=== PATIENT | female | born 1935 | race Caucasian/White ===

== ENCOUNTER → 2019-01-03 14:02 | Outpatient (CLI) | payer MEDICARE, SELFPAY ==
[2019-01-03 14:43] LABS: Add Manual Diff / Slide Review NO; Basophils Absolute Auto 0 /uL (0-100); Basophils Percent Auto 0.5 % (0-2); Eosinophils Absolute Auto 100 /uL (0-450); Hematocrit 41.5 % (36-46); Hemoglobin 13.7 g/dL (12.0-16.0); Lymphocytes Absolute Auto 2300 /uL (1100-4500); Lymphocytes Percent Auto 36.1 % (25-40); Mean Corpuscular HGB Conc 33.1 % (30-36); Mean Corpuscular Hemoglobin 29.7 PG (26-34); Mean Corpuscular Volume 89.7 fL (80-100); Monocytes Absolute Auto 400 /uL (0-900); Monocytes Percent Auto 5.7 % (3-14); Neutrophils Absolute Auto 3500 /uL (1500-7000); Neutrophils Percent Auto 55.7 % (50-75); Platelet Count 258 X10^3/uL (150-400); Red Blood Cell Count 4.63 X10^6/uL (4.0-5.2); Red Cell Distribution Width 13.5 % (11.6-14.8); White Blood Cell Count 6.3 X10^3/uL (4.5-11.0)
[2019-01-03 15:28] LABS: Erythrocyte Sedimentation Rate 13 MM/HR (0-20)
[2019-01-03 15:32] LABS: Alanine Aminotransferase 14 IU/L (9-52); Albumin 4.2 g/dL (3.5-5.0); Albumin Globulin Ratio 1.4 (1.0-2.8); Alkaline Phosphatase 72 U/L (38-126); Aspartate Aminotransferase 26 IU/L (14-36); BUN Creatinine Ratio 21.1 (6-22); Bilirubin Total 0.6 mg/dL (0.2-1.3); Blood Urea Nitrogen 19 mg/dL (7-17); Calcium 9.6 mg/dL (8.4-10.2); Carbon Dioxide 34 mmol/L (22-32); Chloride 100 mmol/L (98-107); Estimated Glomerular Filt Rate > 60.0 mL/min (>60); Glucose 119 mg/dL (80-110); HEMOLYSIS < 15 (0-50); Potassium 4.3 mmol/L (3.4-5.1); Sodium 141 mmol/L (137-145); Total Protein 7.2 g/dL (6.3-8.2)
[2019-01-03 16:19] LABS: C-Reactive Protein Quant < 0.5 mg/dL (<1.0)
== END ==
PROVIDERS: PCP Internal Medicine; Visit Provider Internal Medicine Rheumatology
DX: M35.3 Polymyalgia rheumatica (principal)
CPT/HCPCS: 36415; 80053; 85025; 85651; 86140

== ENCOUNTER → 2019-04-02 09:36 | Outpatient (CLI) | payer MEDICARE, SELFPAY | PROVIDERS: PCP Internal Medicine; Visit Provider Internal Medicine | DX: M85.852 Other specified disorders of bone density and structure, left thigh (principal); Z78.0 Asymptomatic menopausal state; Z82.62 Family history of osteoporosis | CPT/HCPCS: 77080 ==

== ENCOUNTER → 2020-01-23 07:12 | Outpatient (CLI) | payer MEDICARE, SELFPAY ==
[2020-01-23 08:22] LABS: Add Manual Diff / Slide Review NO; Basophils Absolute Auto 0 /uL (0-100); Basophils Percent Auto 0.5 % (0-2); Eosinophils Absolute Auto 300 /uL (0-450); Eosinophils Percent Auto 4.9 % (2-4); Hematocrit 41.2 % (36-46); Hemoglobin 13.9 g/dL (12.0-16.0); Lymphocytes Absolute Auto 2700 /uL (1100-4500); Mean Corpuscular HGB Conc 33.6 % (30-36); Mean Corpuscular Hemoglobin 30.2 PG (26-34); Mean Corpuscular Volume 89.8 fL (80-100); Monocytes Absolute Auto 400 /uL (0-900); Monocytes Percent Auto 6.9 % (3-14); Neutrophils Absolute Auto 2100 /uL (1500-7000); Neutrophils Percent Auto 37.7 % (50-75); Platelet Count 225 X10^3/uL (150-400); Red Blood Cell Count 4.59 X10^6/uL (4.0-5.2); Red Cell Distribution Width 13.7 % (11.6-14.8); White Blood Cell Count 5.5 X10^3/uL (4.5-11.0)
[2020-01-23 08:49] LABS: Alanine Aminotransferase 17 IU/L (<35); Albumin 4.3 g/dL (3.5-5.0); Albumin Globulin Ratio 1.5 (1.0-2.8); Alkaline Phosphatase 77 U/L (38-126); Aspartate Aminotransferase 30 IU/L (14-36); BUN Creatinine Ratio 19.3 (6-22); Bilirubin Total 0.6 mg/dL (0.2-1.3); Blood Urea Nitrogen 17 mg/dL (7-17); Calcium 9.5 mg/dL (8.4-10.2); Carbon Dioxide 30 mmol/L (22-32); Chloride 103 mmol/L (98-107); Cholesterol 194 mg/dL (140-199); Estimated Glomerular Filt Rate > 60.0 mL/min (>60); Globulin 2.8 g/dL (1.7-4.1); Glucose 86 mg/dL (80-110); HDL Cholesterol 69 mg/dL (40-60); HEMOLYSIS < 15 (0-50); LDL Cholesterol Calculated 106 mg/dL (<100); Potassium 4.3 mmol/L (3.4-5.1); Sodium 139 mmol/L (137-145); Total Protein 7.1 g/dL (6.3-8.2); Triglycerides 95 mg/dL (35-150)
[2020-01-23 08:51] LABS: C-Reactive Protein Quant < 0.5 mg/dL (<1.0)
[2020-01-23 08:54] LABS: Erythrocyte Sedimentation Rate 11 MM/HR (0-20)
== END ==
PROVIDERS: PCP Internal Medicine; Referring Provider Internal Medicine; Visit Provider Internal Medicine
DX: Z13.1 Encounter for screening for diabetes mellitus (principal); Z13.220 Encounter for screening for lipoid disorders; Z13.6 Encounter for screening for cardiovascular disorders; M35.3 Polymyalgia rheumatica; M85.80 Other specified disorders of bone density and structure, unspecified site
CPT/HCPCS: 36415; 80053; 80061; 85025; 85651; 86140

== ENCOUNTER → 2021-01-30 11:11 | Outpatient (CLI) | payer OTHER, SELFPAY ==
--- NOTE | 2021-01-30 11:12 | DI.RAD.S_ITS ---
PROCEDURE: XR DEXA AXIAL SKELETON INDICATIONS: osteopenia COMPARISON: None. FINDINGS: This blank DEXA report has been sent in error by the PACS system. The correct and complete report will be forthcoming in 1-2 days. Thank you for your patience and understanding. Dictated by: Christophe Marc M.D. on 01/30/2021 at 12:30 Approved by: Christophe Marc M.D. on 01/30/2021 at 12:31
== END ==
PROVIDERS: PCP Internal Medicine; Referring Provider Internal Medicine; Visit Provider Internal Medicine
DX: M85.89 Other specified disorders of bone density and structure, multiple sites (principal); M85.88 Other specified disorders of bone density and structure, other site; M85.852 Other specified disorders of bone density and structure, left thigh; M85.851 Other specified disorders of bone density and structure, right thigh; M81.0 Age-related osteoporosis without current pathological fracture
CPT/HCPCS: 77080

== ENCOUNTER 2022-05-05 10:35 | Emergency (ER) | payer OTHER, SELFPAY ==
[2022-05-05 10:40] VITALS: BP 173/82; PULSE 60; RESP 15; TEMP 36.6; O2SAT 96; BMI 22.4
--- NOTE | 2022-05-05 10:45 | DI.RAD.S_ITS ---
PROCEDURE: XR WRIST RT MIN 3V INDICATIONS: fall,wrist pain and tailbone pain TECHNIQUE: 4 views of the wrist were acquired. COMPARISON: [facility], , WRIST MINIMUM 3 VIEWS LEFT, 11/29/2006, 9:00. FINDINGS: Bones: Comminuted impacted distal radius fracture, possibly extending to the articular surface. No other fractures or dislocations. Degenerative arthritis at the base of the thumb. No suspicious bony lesions. Scaphoid view: Scaphoid intact Soft tissues: No suspicious soft tissue calcifications. IMPRESSION: Comminuted, impacted distal radius fracture, possibly extending to the articular surface. Dictated by: Pritesh Vega M.D. on 05/05/2022 at 11:31 Approved by: Pritesh Vega M.D. on 05/05/2022 at 11:32
--- NOTE | 2022-05-05 10:45 | DI.RAD.S_ITS ---
PROCEDURE: XR SACRUM COCCYX MIN 2V INDICATIONS: fall TECHNIQUE: 3 views of the sacrum and coccyx acquired. COMPARISON: None. FINDINGS: Bones: No fractures or dislocations. No suspicious bony lesions. Soft tissues: Visualized bowel gas pattern is normal. No suspicious soft tissue densities. IMPRESSION: No evidence acute bony abnormality of the sacrum and coccyx Dictated by: Pritesh Vega M.D. on 05/05/2022 at 11:32 Approved by: Pritesh Vega M.D. on 05/05/2022 at 11:32
--- NOTE | 2022-05-05 12:03 | ED_ITS ---
HPI - Fall <Jesus Padilla PA-C - Last Filed: 05/05/22 13:46> General Chief Complaint: Fall Stated Complaint: sent by [facility] fell injured RT wrist Time Seen by Provider: 05/05/22 11:53 Source: patient Mode of arrival: Ambulatory History of Present Illness HPI Narrative: This is a 86-year-old female presents to the emergency department due to right wrist pain as well as buttock pain after being pulled over by her dogs yesterday while going on a walk. States that her main complaints primarily the right wrist pain. Patient stated that she did hit her head but did not lose consciousness, not on blood thinners, no dizziness, nausea, vomiting, slurred speech, or any other concerning signs or symptoms. No numbness or tingling in the right hand. No other injuries. Related Data Home Medications Medication Instructions Recorded Confirmed cholecalciferol (vitamin D3) 50 1 tab PO QDAY ##0 05/26/16 05/05/22 mcg (2,000 unit) tablet (Vitamin D3) [BONE UP CA+] ##0 09/08/16 05/05/22 vitamin B complex 1 cap PO DAILY 01/18/20 05/05/22 turmeric root extract 500 mg 500 mg PO DAILY 06/24/20 05/05/22 capsule Allergies Allergy/AdvReac Type Severity Reaction Status Date / Time No Known Drug Allergies Allergy Verified 05/05/22 10:45 Review of Systems <Jesus Padilla PA-C - Last Filed: 05/05/22 13:46> Review of Systems Narrative: GENERAL: Denies chills, fatigue, malaise, fever, sweats. HEENT: Denies sinus pain, ear pain, sore throat, difficulty swallowing, dizziness. RESPIRATORY: Denies dyspnea, cough, wheezing, hemoptysis, sputum. CARDIOVASCULAR: Denies chest pain, palpitations, orthopnea, edema, GASTROINTESTINAL: Denies nausea, vomiting, abdominal pain, diarrhea, constipation, melena. : Denies dysuria, frequency, incontinence, hematuria, urinary retention. MUSCULOSKELETAL: Reports right wrist pain, buttock pain SKIN: Denies rash, skin lesions, or other NEUROLOGIC: Denies weakness, headache, numbness, change in speech, confusion, seizures, incoordination. PSYCHIATRIC: No concerning psychosocial issues. 12 point review of systems is negative except for those stated above Patient History <Jesus Padilla PA-C - Last Filed: 05/05/22 13:46> Medical History History of urinary incontinence Osteoarthrosis, unspecified whether generalized or localized, hand (09/16/10) Osteopenia (~2017) Pneumothorax (~2008) Polymyalgia rheumatica Surgical History Anesthesia Broken arm (~2018) History of bronchoscopy (~2009) History of cataract removal with insertion of prosthetic lens (~2008) History of removal of ovarian cyst (~1968) Family History Father History of heart disease Mother Cancer Sister Parkinson's disease Social History Smoking Status: Never smoker Smoking Status: Never smoker alcohol intake frequency: holidays/special occasions only Substance Use Type: does not use Exam <Jesus Padilla PA-C - Last Filed: 05/05/22 13:46> Narrative Exam Narrative: GENERAL: Well-developed patient, in mild distress. HEAD: Atraumatic. Normocephalic. EYES: Pupils equal round and reactive. Extraocular motions intact. No scleral icterus. No injection or drainage. ENT: Nose without bleeding, purulent drainage. Throat without erythema, tonsillar hypertrophy or exudate. Airway patent. NECK: Trachea midline. Non tender CARDIOVASCULAR: Regular rate and rhythm without murmurs, gallops, or rubs. RESPIRATORY: Clear to auscultation. Breath sounds equal bilaterally. No wheezes, rales, or rhonchi. GASTROINTESTINAL: Abdomen soft, non-tender, nondistended. EXTREMITIES: Right distal radius tenderness palpation. Neurovascularly intact throughout, 2+ radial pulse BACK: Nontender without deformity or crepitance. No flank tenderness. NEURO: AOx3. Cranial nerves 2-12 intact SKIN: No rash or erythema of visible areas Initial Vital Signs Initial Vital Signs: Vital Signs Temperature 97.9 F 05/05/22 10:40 Pulse Rate 60 05/05/22 10:40 Respiratory Rate 15 05/05/22 10:40 Blood Pressure 173/82 H 05/05/22 10:40 Pulse Oximetry 96 05/05/22 10:40 Oxygen Delivery Method 05/05/22 10:40 <DO Akua Levine Last Filed: 05/10/22 07:13> Initial Vital Signs Initial Vital Signs: Vital Signs Temperature 97.9 F 05/05/22 10:40 Pulse Rate 60 05/05/22 10:40 Respiratory Rate 15 05/05/22 10:40 Blood Pressure 173/82 H 05/05/22 10:40 Pulse Oximetry 96 05/05/22 10:40 Oxygen Delivery Method 05/05/22 10:40 Course <Jesus Padilla PA-C - Last Filed: 05/05/22 13:46> Orders Ordered: ED Orders 05/05/22 10:45 XR sacrum coccyx min 2V Stat XR wrist RT min 3V Stat Vital Signs Vital signs: Vital Signs - 8 hr 05/05/22 10:40 Temperature 97.9 F Pulse Rate 60 Respiratory Rate 15 Blood Pressure 173/82 H Pulse Oximetry 96 Oxygen Delivery Method Room Air <DO Akua Levine Last Filed: 05/10/22 07:13> Orders Ordered: ED Orders 05/05/22 10:45 XR sacrum coccyx min 2V Stat XR wrist RT min 3V Stat Vital Signs Vital signs: Vital Signs - 8 hr 05/05/22 10:40 Temperature 97.9 F Pulse Rate 60 Respiratory Rate 15 Blood Pressure 173/82 H Pulse Oximetry 96 Oxygen Delivery Method Room Air MDM - Fall <Jesus Padilla PA-C - Last Filed: 05/05/22 13:46> Imaging Data Extremity x-ray #1: Radiologist's Impression: [address] [address] XRay Report Signed Patient: Lamar Alvarado MR#: [id number] : 1935 Acct:[id number] Age/Sex: 86 / F Date of Service: 05/05/22 Loc: ED Accession Number: [id number] ?? Procedure: XR wrist RT min 3V Ordering Provider: Iwona Rouse D.O. PROCEDURE:? XR WRIST RT MIN 3V ? INDICATIONS: fall,wrist pain and tailbone pain ? TECHNIQUE:? 4 views of the wrist were acquired.? ? COMPARISON:? [facility], , WRIST MINIMUM 3 VIEWS LEFT, 11/29/2006, 9:00. ? FINDINGS:? ? Bones:? Comminuted impacted distal radius fracture, possibly extending to the articular surface.? No other fractures or dislocations.? Degenerative arthritis at the base of the thumb.? No suspicious bony lesions.? ? Scaphoid view:? Scaphoid intact ? Soft tissues:? No suspicious soft tissue calcifications.? ? IMPRESSION:? Comminuted, impacted distal radius fracture, possibly extending to the articular surface. ? ? Dictated by: Pritesh Vega M.D. on 05/05/2022 at 11:31 ? ? Approved by: Pritesh Vega M.D. on 05/05/2022 at 11:32 ? Extremity x-ray #2: Radiologist's Impression: [place] [address] XRay Report Signed Patient: Lamar Alvarado MR#: [id number] : 1935 Acct:[id number] Age/Sex: 86 / F Date of Service: 05/05/22 Loc: ED Accession Number: [id number] ?? Procedure: XR sacrum coccyx min 2V Ordering Provider: Iwona Rouse D.O. PROCEDURE:? XR SACRUM COCCYX MIN 2V ? INDICATIONS:? fall ? TECHNIQUE:? 3 views of the sacrum and coccyx acquired.? ? COMPARISON:? None. ? FINDINGS:? ? Bones:? No fractures or dislocations.? No suspicious bony lesions.? ? Soft tissues:? Visualized bowel gas pattern is normal.? No suspicious soft tissue densities.? ? IMPRESSION:? No evidence acute bony abnormality of the sacrum and coccyx ? ? Dictated by: Pritesh Vega M.D. on 05/05/2022 at 11:32 ? ? Approved by: Pritesh Vega M.D. on 05/05/2022 at 11:32 ? MDM Narrative Medical decision making narrative: This is an 86-year-old female presents emergency department with a right distal radius fracture with possible extension to the articular surface. Patient was neurovascularly intact throughout. On x-ray there did not appear to be enough displacement to justify any kind of reduction. Patient will be placed in a sugar-tong splint and instructed to follow up with orthopedics outpatient. On re-evaluation post splint placement patient was neurovascularly intact throughout. Discharge Plan Departure Patient Disposition: Home Clinical Impression: Distal radius fracture Activity Restrictions/Additional Instructions: Thank you for coming to the [facility] Emergency Department today. On x-ray appears that you have a distal radius fracture. Please keep your arm in the splint given to you until you are able to follow-up with orthopedics outpatient. Information attached. Please to arrange an appointment please use Tylenol and ibuprofen as needed for the pain. I hope you feel better soon. Prescriptions: No Action cholecalciferol (vitamin D3) [Vitamin D3] 2,000 UNIT tablet 1 tab PO QDAY Qty: 0 [BONE UP CA+] Qty: 0 vitamin B complex Capsule 1 cap PO DAILY turmeric root extract 500 mg capsule 500 mg PO DAILY Referrals: Saida Cavanaugh MD [Physician] - (f/u distal radius fracture ) Valentin Little MD [Primary Care Provider] - Visit Report Forms: Patient Portal/API <Iwona Rouse DO - Last Filed: 05/10/22 07:13> Cosign ED Attending Cosrhondaature Attestation: I was immediately available in the department for consultation. Documentation has been reviewed. I agree with assessment and plan.
[2022-05-05 14:16] VITALS: BP 137/77; PULSE 69; RESP 15; TEMP 36.9; O2SAT 96
== END 2022-05-05 14:17 | disposition home or self-care (01) ==
PROVIDERS: Emergency Provider Physician Assistant Medical; PCP Internal Medicine
DX: S52.501A Unspecified fracture of the lower end of right radius, initial encounter for closed fracture (principal); M54.50 Low back pain, unspecified; W18.30XA Fall on same level, unspecified, initial encounter; Y93.K1 Activity, walking an animal
CPT/HCPCS: 72220; 73110; 99281; 99283

== ENCOUNTER → 2022-11-18 09:38 | Outpatient (CLI) | payer OTHER, SELFPAY ==
[2022-11-18 10:13] LABS: Add Manual Diff / Slide Review NO; Basophils Absolute Auto 0 /uL (0-100); Basophils Percent Auto 0.4 % (0-2); Eosinophils Absolute Auto 200 /uL (0-450); Hematocrit 40.2 % (36-46); Hemoglobin 13.6 g/dL (12.0-16.0); Lymphocytes Absolute Auto 1900 /uL (1100-4500); Lymphocytes Percent Auto 35.5 % (25-40); Mean Corpuscular HGB Conc 33.8 % (30-36); Mean Corpuscular Volume 88.7 fL (80-100); Monocytes Absolute Auto 400 /uL (0-900); Monocytes Percent Auto 6.8 % (3-14); Neutrophils Absolute Auto 2900 /uL (1500-7000); Neutrophils Percent Auto 54.3 % (50-75); Platelet Count 219 X10^3/uL (150-400); Red Blood Cell Count 4.53 X10^6/uL (4.0-5.2); Red Cell Distribution Width 13.8 % (11.6-14.8); White Blood Cell Count 5.4 X10^3/uL (4.5-11.0)
[2022-11-18 10:31] LABS: Erythrocyte Sedimentation Rate 15 MM/HR (0-20)
[2022-11-18 10:40] LABS: Alanine Aminotransferase 21 IU/L (<35); Albumin 4.1 g/dL (3.5-5.0); Albumin Globulin Ratio 1.4 (1.0-2.8); Alkaline Phosphatase 78 U/L (38-126); Aspartate Aminotransferase 27 IU/L (14-36); BUN Creatinine Ratio 19.5 (6-22); Bilirubin Total 0.5 mg/dL (0.2-1.3); Blood Urea Nitrogen 16 mg/dL (7-17); C-Reactive Protein Quant < 0.5 mg/dL (<1.0); Calcium 9.1 mg/dL (8.4-10.2); Carbon Dioxide 29 mmol/L (22-32); Chloride 103 mmol/L (98-107); Estimated Glomerular Filt Rate > 60 mL/min (>60); Globulin 2.9 g/dL (1.7-4.1); Glucose 98 mg/dL (80-110); HEMOLYSIS < 15 (0-50); Potassium 4.2 mmol/L (3.4-5.1); Sodium 139 mmol/L (137-145)
== END ==
PROVIDERS: PCP Internal Medicine; Referring Provider Internal Medicine; Visit Provider Internal Medicine
DX: M35.3 Polymyalgia rheumatica (principal); M19.041 Primary osteoarthritis, right hand; M19.042 Primary osteoarthritis, left hand; M85.89 Other specified disorders of bone density and structure, multiple sites
CPT/HCPCS: 36415; 80053; 85025; 85651; 86140

== ENCOUNTER 2023-01-25 14:26 | Emergency (ER) | payer OTHER, SELFPAY ==
[2023-01-25] VITALS (8 sets, daily range): BP systolic 156–176; BP diastolic 72–96; PULSE 54–57; RESP 12–27; TEMP 36.6; O2SAT 92–98; BMI 23.1
--- NOTE | 2023-01-25 14:33 | DI.RAD.S_ITS ---
PROCEDURE: XR CHEST 1V INDICATIONS: chest pain TECHNIQUE: One view of the chest was acquired. COMPARISON: [facility], , XR CHEST 2VW, 11/17/2016, 9:15. FINDINGS: Surgical changes and devices: Partially visualized right humerus fixation hardware. Lungs and pleura: Lungs are clear. Bilateral a pickle pleural-parenchymal scarring, right greater than left. No pleural effusions or pneumothorax. Mediastinum: Mediastinal contours appear normal. Heart size is normal. Bones and chest wall: No suspicious bony lesions. Overlying soft tissues appear unremarkable. IMPRESSION: Portable chest within normal limits for age. Dictated by: Kya Vargas MD, PhD on 01/25/2023 at 15:00 Approved by: Kya Vargas MD, PhD on 01/25/2023 at 15:01
[2023-01-25 15:21] LABS: Add Manual Diff / Slide Review NO; Basophils Absolute Auto 0 /uL (0-100); Basophils Percent Auto 0.4 % (0-2); Eosinophils Absolute Auto 200 /uL (0-450); Eosinophils Percent Auto 2.4 % (2-4); Hematocrit 39.3 % (36-46); Hemoglobin 13.5 g/dL (12.0-16.0); Lymphocytes Absolute Auto 2300 /uL (1100-4500); Lymphocytes Percent Auto 35.4 % (25-40); Mean Corpuscular HGB Conc 34.4 % (30-36); Mean Corpuscular Hemoglobin 29.8 PG (26-34); Mean Corpuscular Volume 86.8 fL (80-100); Monocytes Absolute Auto 400 /uL (0-900); Monocytes Percent Auto 6.7 % (3-14); Neutrophils Absolute Auto 3600 /uL (1500-7000); Neutrophils Percent Auto 55.1 % (50-75); Platelet Count 274 X10^3/uL (150-400); Red Blood Cell Count 4.53 X10^6/uL (4.0-5.2); Red Cell Distribution Width 13.1 % (11.6-14.8); White Blood Cell Count 6.5 X10^3/uL (4.5-11.0)
[2023-01-25 15:28] LABS: Prothrombin Time 11.4 SECONDS (10.1-12.7)
[2023-01-25 15:31] LABS: PTT Partial Thromboplastin Tim 30 SECONDS (26-36)
[2023-01-25 15:37] LABS: Alanine Aminotransferase 33 IU/L (<35); Albumin 4.2 g/dL (3.5-5.0); Albumin Globulin Ratio 1.2 (1.0-2.8); Alkaline Phosphatase 99 U/L (38-126); Aspartate Aminotransferase 36 IU/L (14-36); BUN Creatinine Ratio 19.3 (6-22); Bilirubin Total 0.6 mg/dL (0.2-1.3); Blood Urea Nitrogen 16 mg/dL (7-17); Carbon Dioxide 32 mmol/L (22-32); Chloride 101 mmol/L (98-107); Creatine Kinase 72 U/L (30-135); Estimated Glomerular Filt Rate > 60 mL/min (>60); Globulin 3.5 g/dL (1.7-4.1); Glucose 111 mg/dL (80-110); HEMOLYSIS < 15 (0-50); Lipase 163 U/L (23-300); Magnesium 2.3 mg/dL (1.6-2.3); Potassium 4.2 mmol/L (3.4-5.1); Sodium 140 mmol/L (137-145); Total Protein 7.7 g/dL (6.3-8.2)
[2023-01-25 15:48] LABS: Troponin I < 0.012 ng/mL (0.01-0.034)
[2023-01-25] MEDS: ASPIRIN 81 MG CHEW TAB 324 MG PO (16:27)
--- NOTE | 2023-01-25 16:34 | ED.CHESTPAIN ---
HPI - Chest Pain General Chief Complaint: Chest Pain Stated Complaint: sent by [facility] heart eval Time Seen by Provider: 01/25/23 15:04 Source: patient Mode of arrival: Ambulatory Limitations: no limitations History of Present Illness HPI narrative: Patient 87-year-old female history of osteoarthritis osteopenia pneumothorax presenting today with chest tightness. She reports that she is had chest tightness ongoing for about 2 weeks. He reports that she has a deep nonproductive cough. She denies any shortness of breath with exertion. Chest pain is nonradiating it has been constant for 2 weeks not reproducible with palpation. She has no lower extremity swelling. No known history of coronary artery disease. She is reports that she took an COVID test at home it was negative. She woke up this morning sweaty with thought that was because she was sleeping with her dog. She is not had chills. She was seen at walk-in clinic today with concerns sent her here for further cardiac evaluation. She also reports that her recently and she has a lot of stress around that. Related Data Home Medications Medication Instructions Recorded Confirmed cholecalciferol (vitamin D3) 50 1 tab PO QDAY ##0 05/26/16 01/25/23 mcg (2,000 unit) tablet (Vitamin D3) [BONE UP CA+] ##0 09/08/16 01/25/23 vitamin B complex 1 cap PO DAILY 01/18/20 01/25/23 Previous Rx's Medication Instructions Recorded prednisone 10 mg tablet 10 mg PO DAILY #30 tabs 11/22/22 Allergies Allergy/AdvReac Type Severity Reaction Status Date / Time No Known Drug Allergies Allergy Verified 01/25/23 14:32 Review of Systems Review of Systems ROS Unobtainable: All systems reviewed & are unremarkable except as noted in HPI and below Patient History Medical History History of urinary incontinence Osteoarthrosis, unspecified whether generalized or localized, hand (09/16/10) Osteopenia (~2017) Pneumothorax (~2008) Polymyalgia rheumatica Wrist fracture, right Surgical History Anesthesia Broken arm (~2018) History of bronchoscopy (~2009) History of cataract removal with insertion of prosthetic lens (~2008) History of removal of ovarian cyst (~1969) Family History Father History of heart disease Mother Cancer Sister Parkinson's disease Social History Smoking Status: Never smoker Smoking Status: Never smoker alcohol intake frequency: holidays/special occasions only Substance Use Type: does not use Exam Initial Vital Signs Initial Vital Signs: Vital Signs Temperature 97.9 F 01/25/23 14:28 Pulse Rate 57 L 01/25/23 14:28 Respiratory Rate 16 01/25/23 14:28 Blood Pressure 172/76 H 01/25/23 14:28 Pulse Oximetry 95 01/25/23 14:28 Oxygen Delivery Method Room Air 01/25/23 14:28 GENERAL: Alert pleasant 87-year-old female and in no acute distress. HEENT: Head atraumatic,EOMI, pupils reactive, face symmetric, moist mucous membranes CARDIOVASCULAR: Regular rate and rhythm without murmurs, rubs or gallops. RESPIRATORY: Breath sounds equal bilaterally, no wheezes rales or rhonchi. ABDOMEN: Soft, nontender. Normoactive bowel sounds all 4 quadrants. No guarding or rebound. EXTREMITIES: Normal range of motion, no clubbing or edema. Neurovascularly intact NEUROLOGICAL: Alert and oriented x4 SKIN: Warm, dry, no laceration, no petechiae, no rashes or lesions. Scores HEART Score Heart Score history: Slightly Suspicious Heart Score EKG: Normal Heart Score Age: > or = 65 years old Heart Score risk factors: No known risk factors Heart Score troponin: < or = to normal limit Heart Score Total: 2 Course Orders Ordered: ED Orders 01/25/23 14:33 XR chest 1V Stat EKG-12 Lead Stat 01/25/23 15:15 Complete Blood Count AUTO DIFF Stat Comprehensive Metabolic Panel Stat Lipase Stat Magnesium Stat PTT Partial Thromboplastin Migel Stat Prothrombin Time INR Stat Troponin & CK Cardiac Panel Stat 01/25/23 17:15 EKG-12 Lead Stat 01/25/23 17:26 Troponin I Stat Discontinued Medications Aspirin (Aspirin 81 Mg Chew Tab) 324 mg PO NOW ONE Stop: 01/25/23 14:34 Last Admin: 01/25/23 16:27 Dose: 324 mg Documented By: MICHAEL Vital Signs Vital signs: Vital Signs - 8 hr 01/25/23 14:28 01/25/23 15:37 01/25/23 15:38 Temperature 97.9 F Pulse Rate 57 L 55 L 54 L Respiratory Rate 16 20 12 Blood Pressure 172/76 H Pulse Oximetry 95 97 96 Oxygen Delivery Method Room Air 01/25/23 15:38 01/25/23 16:00 01/25/23 16:00 Temperature Pulse Rate 55 L Respiratory Rate 24 Blood Pressure 164/96 H 161/77 H Pulse Oximetry 97 Oxygen Delivery Method Room Air 01/25/23 16:30 01/25/23 16:30 01/25/23 17:00 Temperature Pulse Rate 56 L Respiratory Rate 24 Blood Pressure 176/83 H 156/74 H Pulse Oximetry 98 Oxygen Delivery Method 01/25/23 17:00 01/25/23 18:12 01/25/23 18:14 Temperature Pulse Rate 54 L Respiratory Rate 27 H Blood Pressure 161/72 H Pulse Oximetry 97 92 Oxygen Delivery Method 01/25/23 18:14 Temperature Pulse Rate 54 L Respiratory Rate 13 Blood Pressure Pulse Oximetry 97 Oxygen Delivery Method Room Air MDM - Chest Pain Lab Data 01/25/23 15:15 01/25/23 15:15 Labs: Lab Results 01/25/23 01/25/23 01/25/23 Range/Units 15:15 15:15 15:15 WBC 6.5 (4.5-11.0) X10^3/uL RBC 4.53 (4.0-5.2) X10^6/uL Hgb 13.5 (12.0-16.0) g/dL Hct 39.3 (36-46) % MCV 86.8 (80-100) fL MCH 29.8 (26-34) PG MCHC 34.4 (30-36) % RDW 13.1 (11.6-14.8) % Plt Count 274 (150-400) X10^3/uL Neut % (Auto) 55.1 (50-75) % Lymph % (Auto) 35.4 (25-40) % [place] % (Auto) 6.7 (3-14) % Eos % (Auto) 2.4 (2-4) % Baso % (Auto) 0.4 (0-2) % Neut # (Auto) 3600 (2031-7539) /uL Lymph # (Auto) 2300 (1450-6526) /uL [place] # (Auto) 400 (0-900) /uL Eos # (Auto) 200 (0-450) /uL Baso # (Auto) 0 (0-100) /uL PT 11.4 (10.1-12.7) SECONDS INR 1.0 (0.9-1.3) APTT 30 (26-36) SECONDS Sodium 140 (137-145) mmol/L Potassium 4.2 (3.4-5.1) mmol/L Chloride 101 (98-107) mmol/L Carbon Dioxide 32 (22-32) mmol/L BUN 16 (7-17) mg/dL Creatinine 0.83 (0.52-1.04) mg/dL Estimated GFR > 60 (>60) mL/min BUN/Creatinine Ratio 19.3 (6-22) Glucose 111 H (80-110) mg/dL Calcium 9.0 (8.4-10.2) mg/dL Magnesium 2.3 (1.6-2.3) mg/dL Total Bilirubin 0.6 (0.2-1.3) mg/dL AST 36 (14-36) IU/L ALT 33 (<35) IU/L Alkaline Phosphatase 99 (38-126) U/L Total Creatine Kinase 72 (30-135) U/L Troponin I < 0.012 (0.01-0.034) ng/mL Total Protein 7.7 (6.3-8.2) g/dL Albumin 4.2 (3.5-5.0) g/dL Globulin 3.5 (1.7-4.1) g/dL Albumin/Globulin Ratio 1.2 (1.0-2.8) Lipase 163 (23-300) U/L 01/25/23 Range/Units 17:26 WBC (4.5-11.0) X10^3/uL RBC (4.0-5.2) X10^6/uL Hgb (12.0-16.0) g/dL Hct (36-46) % MCV (80-100) fL MCH (26-34) PG MCHC (30-36) % RDW (11.6-14.8) % Plt Count (150-400) X10^3/uL Neut % (Auto) (50-75) % Lymph % (Auto) (25-40) % [place] % (Auto) (3-14) % Eos % (Auto) (2-4) % Baso % (Auto) (0-2) % Neut # (Auto) (7930-5312) /uL Lymph # (Auto) (3042-6808) /uL [place] # (Auto) (0-900) /uL Eos # (Auto) (0-450) /uL Baso # (Auto) (0-100) /uL PT (10.1-12.7) SECONDS INR (0.9-1.3) APTT (26-36) SECONDS Sodium (137-145) mmol/L Potassium (3.4-5.1) mmol/L Chloride (98-107) mmol/L Carbon Dioxide (22-32) mmol/L BUN (7-17) mg/dL Creatinine (0.52-1.04) mg/dL Estimated GFR (>60) mL/min BUN/Creatinine Ratio (6-22) Glucose (80-110) mg/dL Calcium (8.4-10.2) mg/dL Magnesium (1.6-2.3) mg/dL Total Bilirubin (0.2-1.3) mg/dL AST (14-36) IU/L ALT (<35) IU/L Alkaline Phosphatase (38-126) U/L Total Creatine Kinase (30-135) U/L Troponin I < 0.012 (0.01-0.034) ng/mL Total Protein (6.3-8.2) g/dL Albumin (3.5-5.0) g/dL Globulin (1.7-4.1) g/dL Albumin/Globulin Ratio (1.0-2.8) Lipase (23-300) U/L Imaging Data Chest x-ray: Radiologist's Impression: PROCEDURE:? XR CHEST 1V ? INDICATIONS:? chest pain ? TECHNIQUE:? One view of the chest was acquired.? ? COMPARISON:? [facility], CR, XR CHEST 2VW, 11/17/2016, 9:15. ? FINDINGS:? ? Surgical changes and devices:? Partially visualized right humerus fixation hardware. ? Lungs and pleura:? Lungs are clear.? Bilateral a pickle pleural-parenchymal scarring, right greater than left.? No pleural effusions or pneumothorax.? ? Mediastinum:? Mediastinal contours appear normal.? Heart size is normal.? ? Bones and chest wall:? No suspicious bony lesions.? Overlying soft tissues appear unremarkable.? ? ? IMPRESSION:? Portable chest within normal limits for age. ? ? Dictated by: Kya Vargas MD, PhD on 01/25/2023 at 15:00 ? ? ECG Data Interpretation: Normal sinus rhythm rate 56 VA interval 176 QRS 104 QTC 403 T changes no T-wave inversions no priors to compare EKG 2. Sinus rhythm rate [address] changes similar to previous MDM Narrative Medical decision making narrative: Patient 87-year-old female presents today with cough and chest discomfort ongoing for 2 weeks. It is constant nonradiating feeling it at rest. Does not seem to be significantly worse with exertion. Chest x-ray is clear no need for antibiotics. She is afebrile without leukocytosis or sign of infection. She is 2- troponins no changes in her EKGs. She has no known coronary artery disease or risk factors. She is taken a home COVID test which is negative at time Labs have been reviewed Chest x-ray has been reviewed Patient is in no respiratory distress having deep cough with chest tightness consistent with a viral-like illness. She is not hypoxic hemodynamically stable. Symptoms not consistent with pulmonary embolism although it was considered. No evidence of ACS at this time Discharge Plan Departure Patient Disposition: Home Clinical Impression: Atypical chest pain, Acute upper respiratory infection Instructions: DI for Viral Upper Respiratory Infection -- Adult, DI for Atypical Chest Pain Activity Restrictions/Additional Instructions: *You have been diagnosed with atypical chest pain, possible viral syndrome *What to do: At this time no need for antibiotics. You may require further cardiac evaluation such as a stress test. Please discuss this with your primary care provider *Continue to take medications as directed *Follow up with your primary care provider in 2-3 days or call [phone] *Return to ER if you should have increasing chest pain shortness of breath fever confusion or any new, worsening or concerning symptoms Prescriptions: No Action cholecalciferol (vitamin D3) [Vitamin D3] 2,000 UNIT tablet 1 tab PO QDAY Qty: 0 [BONE UP CA+] Qty: 0 prednisone 10 mg tablet 10 mg PO DAILY Qty: 30 3RF vitamin B complex Capsule 1 cap PO DAILY Referrals: Valentin Little MD [Primary Care Provider] - Stand Alone Forms: Patient Portal/API
[2023-01-25 18:05] LABS: Troponin I < 0.012 ng/mL (0.01-0.034)
== END 2023-01-25 19:05 | disposition home or self-care (01) ==
PROVIDERS: Emergency Provider Emergency Medicine; PCP Internal Medicine
DX: J06.9 Acute upper respiratory infection, unspecified (principal); R07.89 Other chest pain
CPT/HCPCS: 36415; 71045; 80053; 82550; 83690; 83735; 84484; 85025; 85610; 85730; 93005; 93010; 99284

== ENCOUNTER → 2023-07-05 07:22 | Outpatient (CLI) | payer OTHER, SELFPAY ==
[2023-07-05 08:30] LABS: Alanine Aminotransferase 18 IU/L (<35); Albumin 3.9 g/dL (3.5-5.0); Albumin Globulin Ratio 1.3 (1.0-2.8); Alkaline Phosphatase 80 U/L (38-126); Aspartate Aminotransferase 29 IU/L (14-36); BUN Creatinine Ratio 23.5 (6-22); Bilirubin Total 0.7 mg/dL (0.2-1.3); Blood Urea Nitrogen 20 mg/dL (7-17); Calcium 9.5 mg/dL (8.4-10.2); Carbon Dioxide 30 mmol/L (22-32); Chloride 102 mmol/L (98-107); Cholesterol 165 mg/dL (140-199); Estimated Glomerular Filt Rate > 60 mL/min (>60); Globulin 2.9 g/dL (1.7-4.1); Glucose 83 mg/dL (80-110); HDL Cholesterol 65 mg/dL (40-60); HEMOLYSIS < 15 (0-50); LDL Cholesterol Calculated 86 mg/dL (<100); Potassium 4.1 mmol/L (3.4-5.1); Sodium 139 mmol/L (137-145); Total Protein 6.8 g/dL (6.3-8.2); Triglycerides 70 mg/dL (35-150)
== END ==
PROVIDERS: PCP Internal Medicine; Referring Provider Internal Medicine; Visit Provider Internal Medicine
DX: Z13.6 Encounter for screening for cardiovascular disorders (principal); M85.80 Other specified disorders of bone density and structure, unspecified site; Z13.1 Encounter for screening for diabetes mellitus; Z13.220 Encounter for screening for lipoid disorders
CPT/HCPCS: 36415; 80053; 80061

== ENCOUNTER → 2023-07-07 14:30 | Outpatient (CLI) | payer OTHER, SELFPAY ==
--- NOTE | 2023-07-07 14:32 | DI.RAD.S_ITS ---
Bone Density Report Name: SANDEEP TRIPLETT Age: 87 Sex: Female Ethnicity: White Date of : 1935 Indication: osteopenia; Referring Provider: SAURAV GUZMÁN Study: Bone densitometry was performed. Exam Date: July 07, 2023 Accession number: [id number] Bone Density: Region BMD T-score Z-score Classification AP Spine(L1-L4) 0.877 -1.5 1.3 Osteopenia Femoral Neck (Left) 0.614 -2.1 0.4 Osteopenia Total Hip (Left) 0.733 -1.7 0.6 Osteopenia Femoral Neck (Right) 0.551 -2.7 -0.2 Osteoporosis Total Hip (Right) 0.755 -1.5 0.8 Osteopenia Total Hip Mean 0.744 -1.6 0.7 Osteopenia World Health Organization criteria for BMD impression classify patients as: Normal (T-score at or above -1.0), Osteopenia (T-score between -1.0 and -2.5), or Osteoporosis (T-score at or below -2.5). 10-year Fracture Risk: FRAX not reported because: Some T-score for Spine Total or Hip Total or Femoral Neck at or below -2.5 Previous Exams: -- Region Exam Age BMD T-score BMD Change BMD Change Date g/cm2 vs Baseline vs Previous -- AP Spine (L1-L4) 07/07/2023 87 0.877 -1.5 -0.100 (-10.2%)# -0.009 (-1.0%)# 01/30/2021 85 0.886 -1.5 -0.091 (-9.3%)* 0.010 (1.1%) 04/02/2019 83 0.876 -1.6 -0.100 (-10.3%)* -0.021 (-2.3%) 08/08/2015 79 0.897 -1.4 -0.079 (-8.1%)* -0.079 (-8.1%)* 02/15/2007 71 0.976 -0.6 Total Hip(Left) 07/07/2023 87 0.733 -1.7 -0.092 (-11.1%)# 0.001 (0.1%)# 01/30/2021 85 0.732 -1.7 -0.092 (-11.2%)* 0.010 (1.4%) 04/02/2019 83 0.722 -1.8 -0.102 (-12.4%)* -0.018 (-2.4%) 08/08/2015 79 0.740 -1.7 -0.084 (-10.2%)* -0.084 (-10.2%)* 02/15/2007 71 0.825 -1.0 Total Hip(Right) 07/07/2023 87 0.755 -1.5 -0.095 (-11.2%)# 0.014 (1.9%)# 01/30/2021 85 0.741 -1.6 -0.109 (-12.9%)* -0.027 (-3.6%)* 04/02/2019 83 0.768 -1.4 -0.082 (-9.7%)* -0.029 (-3.6%)* 08/08/2015 79 0.797 -1.2 -0.053 (-6.2%)* -0.053 (-6.2%)* 02/15/2007 71 0.851 -0.7 -- *Denotes significance at 95% confidence level, LSC for AP Spine = 0.022 g/cm2, LSC for Total Hip = 0.027 g/cm2 # Denotes dissimilar scan types or analysis methods Impression: The patient has osteoporosis, based on the Right Femoral Neck T-score. No significant bone loss was observed. Discussion: INCREASED RISK OF FRACTURE. BONE DENSITY IS UNDESIRABLY LOW AT ONE OR MORE SKELETAL SITES, CONSISTENT WITH POSTMENOPAUSAL OSTEOPOROSIS. This patient's lowest T-score meets the World Health Organization's (WHO) criteria for osteoporosis at one or more sites (T-score -2.5 or below). In untreated patients, the risk of osteoporotic fracture increases approximately two-fold for each 1.0 SD decrease in T-score. Low bone density is not the only risk factor for fracture; also consider factors such as patient's age, frailty or poor health, risk of falling, risk of injury, previous osteoporotic fracture, family history of osteoporosis, cigarette smoking, low body weight, etc. Not everyone with low bone mineral density has osteoporosis; osteomalacia and other metabolic bone disorders should also be considered. Patients who have osteoporosis should be evaluated for specific diseases and conditions (secondary causes) that may cause or contribute to bone loss. The [place] [employer]ocrinologists (AACE) and National Osteoporosis Foundation (NOF) recommend pharmacologic intervention for all postmenopausal women whose T-score is in this range. The patient should follow a healthful lifestyle (good nutrition with adequate calcium and vitamin D, and appropriate weight-bearing exercise). Follow-Up: Consider a repeat BMD and Vertebral Fracture Assessment (VFA) exam in 2 years or sooner if medically necessary, to reassess this patient's status. Reported by: SHIRLEY MARTINEZ M.D. on 07/07/2023 2:56:00 PM.
== END ==
LOC: RAD 14:31
PROVIDERS: PCP Internal Medicine; Referring Provider Internal Medicine; Visit Provider Internal Medicine
DX: M81.0 Age-related osteoporosis without current pathological fracture (principal)
CPT/HCPCS: 77080

== ENCOUNTER 2024-04-29 13:08 | Emergency (ER) | payer OTHER, SELFPAY ==
[2024-04-29] VITALS (8 sets, daily range): BP systolic 138–193; BP diastolic 63–80; PULSE 52–63; RESP 15–24; TEMP 36.4–36.6; O2SAT 97–99; BMI 23.3
--- NOTE | 2024-04-29 13:18 | DI.RAD.S_ITS ---
PROCEDURE: XR CHEST 1V INDICATIONS: chest pressure TECHNIQUE: One view of the chest was acquired. COMPARISON: [facility], CR, XR CHEST 1V, 01/25/2023, 14:37. FINDINGS: Surgical changes and devices: Right humeral fixation hardware. Lungs and pleura: Lungs are clear. No pleural effusions or pneumothorax. Right apical scarring is unchanged. Mediastinum: Mediastinal contours appear normal. Heart size is normal. Bones and chest wall: No suspicious bony lesions. Overlying soft tissues appear unremarkable. IMPRESSION: No acute cardiopulmonary abnormality is seen. Dictated by: Noelle Calloway M.D. on 04/29/2024 at 13:26 Approved by: Noelle Calloway M.D. on 04/29/2024 at 13:27
--- NOTE | 2024-04-29 13:18 | EKG_ITS ---
[address] [address] Test Date: 2024-04-29 Pat Name: Lamar Alvarado Department: Room: Gender: Female Hog Scalder: MATHIEU : 1935 Requested By: Order Number: [id number] Reading MD: Donald Mata Measurements Intervals [place] Rate: 63 P: 62 DE: 162 QRS: -47 QRSD: 110 T: 62 QT: 412 QTc: 421 Interpretive Statements Normal sinus rhythm Incomplete right bundle branch block Left anterior fascicular block Moderate voltage criteria for LVH, may be normal variant ( R in aVL , J Carlos product ) Nonspecific ST abnormality Electronically Signed On 05-01-2024 19:41:34 PST by Donald Mata
[2024-04-29 13:35] LABS: Add Manual Diff / Slide Review NO; Basophils Absolute Auto 100 /uL (0-100); Basophils Percent Auto 0.7 % (0-2); Eosinophils Absolute Auto 100 /uL (0-450); Hematocrit 44.6 % (36-46); Hemoglobin 14.6 g/dL (12.0-16.0); Lymphocytes Absolute Auto 2500 /uL (1100-4500); Lymphocytes Percent Auto 28.7 % (25-40); Mean Corpuscular HGB Conc 32.8 % (30-36); Mean Corpuscular Hemoglobin 29.7 PG (26-34); Mean Corpuscular Volume 90.3 fL (80-100); Monocytes Absolute Auto 500 /uL (0-900); Monocytes Percent Auto 6.1 % (3-14); Neutrophils Absolute Auto 5400 /uL (1500-7000); Neutrophils Percent Auto 63.5 % (50-75); Platelet Count 287 X10^3/uL (150-400); Red Blood Cell Count 4.94 X10^6/uL (4.0-5.2); Red Cell Distribution Width 14.2 % (11.6-14.8); White Blood Cell Count 8.6 X10^3/uL (4.5-11.0)
[2024-04-29 13:44] LABS: INR 0.9 (0.9-1.3); Prothrombin Time 10.7 SECONDS (9.4-12.5)
[2024-04-29 13:46] LABS: Alanine Aminotransferase 24 IU/L (<35); Albumin 4.8 g/dL (3.5-5.0); Albumin Globulin Ratio 1.4 (1.0-2.8); Alkaline Phosphatase 90 U/L (38-126); Aspartate Aminotransferase 40 IU/L (14-36); BUN Creatinine Ratio 16.9 (6-22); Bilirubin Total 0.7 mg/dL (0.2-1.3); Blood Urea Nitrogen 14 mg/dL (7-17); Calcium 9.5 mg/dL (8.4-10.2); Carbon Dioxide 27 mmol/L (22-32); Chloride 105 mmol/L (98-107); Creatine Kinase 106 U/L (30-135); Estimated Glomerular Filt Rate > 60 mL/min (>60); Globulin 3.4 g/dL (1.7-4.1); Glucose 118 mg/dL (80-110); HEMOLYSIS < 15 (0-50); Lipase 176 U/L (23-300); Magnesium 2.2 mg/dL (1.6-2.3); PTT Partial Thromboplastin Tim 31 SECONDS (25.1-36.5); Potassium 4.2 mmol/L (3.4-5.1); Sodium 141 mmol/L (137-145); Total Protein 8.2 g/dL (6.3-8.2)
[2024-04-29] MEDS: ASPIRIN 81 MG CHEW TAB 324 MG PO (13:48)
[2024-04-29 13:58] LABS: NT-proBNP (BNP-Adult 18+) 137 pg/mL (<450); Troponin I < 0.012 ng/mL (0.01-0.034)
--- NOTE | 2024-04-29 14:42 | PC.NURSE ---
Pt states she was leaning forth to pick something up yesterday when she was walking the dog when she rolled over and was not able to get up. Pt states this happened a couple of times. Pt reports that her daughter told her to come to the ED. Pt describes CP as tightness and states it is a 5/10. Pt able to stand/undress without assistance. Respirations regular and unlabored.
--- NOTE | 2024-04-29 15:43 | ED.CHESTPAIN ---
HPI - Chest Pain General Chief Complaint: Chest Pain Stated Complaint: tightness in chest Time Seen by Provider: 04/29/24 15:23 Source: patient Limitations: no limitations History of Present Illness HPI narrative: Patient is a 88-year-old female history of polymyalgia rheumatica osteopenia, presents today with chest pain. She says she is very active she walks her dogs twice a day. Yesterday she was walking started raining and was windy and called she was walking a lot faster. She bent over to lemon picker some dog poop when she just kind of rolled over onto the ground. No injury from her fall. But since then she has had tightening in her chest. No significant shortness of breath. She was able to walk her dogs today more than 1 mi without any sort of issue. She has no known coronary artery disease. She reports that sitting still here in the emergency department her pain has subsided some. Otherwise it is fairly constant nonradiating. Related Data Home Medications Medication Instructions Recorded Confirmed cholecalciferol (vitamin D3) 50 1 tab PO QDAY ##0 05/26/16 12/12/23 mcg (2,000 unit) tablet (Vitamin D3) [BONE UP CA+] ##0 09/08/16 12/12/23 vitamin B complex 1 cap PO DAILY 01/18/20 12/12/23 Allergies Allergy/AdvReac Type Severity Reaction Status Date / Time No Known Drug Allergies Allergy Verified 04/29/24 13:30 Patient History Medical History Wrist fracture, right Osteoarthrosis, unspecified whether generalized or localized, hand (09/16/10) Polymyalgia rheumatica Pneumothorax (~2008) Osteopenia (~2017) History of urinary incontinence Surgical History Anesthesia History of removal of ovarian cyst (~1968) Broken arm (~2018) History of bronchoscopy (~2009) History of cataract removal with insertion of prosthetic lens (~2008) Family History Father History of heart disease Mother Cancer Sister Parkinson's disease Social History Smoking Status: Never smoker Smoking Status: Never smoker alcohol intake frequency: holidays/special occasions only Exam Initial Vital Signs Initial Vital Signs: Vital Signs Temperature 97.5 F L 04/29/24 13:18 Pulse Rate 63 04/29/24 13:18 Respiratory Rate 18 04/29/24 13:18 Blood Pressure 180/80 H 04/29/24 13:18 Pulse Oximetry 97 04/29/24 13:18 Oxygen Delivery Method Room Air 04/29/24 13:18 GENERAL: Alert well-appearing 88-year-old female and in no acute distress. HEENT: Head atraumatic,EOMI, pupils reactive, face symmetric, moist mucous membranes CARDIOVASCULAR: Regular rate and rhythm without murmurs, rubs or gallops. RESPIRATORY: Breath sounds equal bilaterally, no wheezes rales or rhonchi. ABDOMEN: Soft, nontender. Normoactive bowel sounds all 4 quadrants. No guarding or rebound. EXTREMITIES: Normal range of motion, no clubbing or edema. Neurovascularly intact NEUROLOGICAL: Alert and oriented x4.Normal gait and speech. Cranial nerves II through XII grossly intact. SKIN: Warm, dry, no laceration, no petechiae, no rashes or lesions. Scores HEART Score Heart Score history: Slightly Suspicious Heart Score EKG: Normal Heart Score Age: > or = 65 years old Heart Score risk factors: No known risk factors Heart Score troponin: < or = to normal limit Heart Score Total: 2 Course Orders Ordered: ED Orders 04/29/24 13:18 XR chest 1V Stat EKG-12 Lead Stat 04/29/24 13:19 Complete Blood Count AUTO DIFF Stat Comprehensive Metabolic Panel Stat Lipase Stat Magnesium Stat NT-proBNP (BNP-Adult 18+) Stat PTT Partial Thromboplastin Migel Stat Prothrombin Time INR Stat Troponin & CK Cardiac Panel Stat 04/29/24 15:37 Trop I [Troponin I] Stat Discontinued Medications Aspirin (Aspirin 81 Mg Chew Tab) 324 mg PO NOW ONE Stop: 04/29/24 13:18 Last Admin: 04/29/24 13:48 Dose: 324 mg Documented By: SB Vital Signs Vital signs: Vital Signs - 8 hr 04/29/24 13:18 04/29/24 13:20 04/29/24 13:30 Temperature 97.5 F L Pulse Rate 63 61 57 L Respiratory Rate 18 16 17 Blood Pressure 180/80 H 180/80 H 138/63 Pulse Oximetry 97 97 97 Oxygen Delivery Method Room Air Room Air 04/29/24 14:00 04/29/24 14:00 04/29/24 14:30 Temperature Pulse Rate 55 L Respiratory Rate 19 Blood Pressure 145/70 H 167/74 H Pulse Oximetry 97 Oxygen Delivery Method 04/29/24 14:30 04/29/24 15:00 04/29/24 15:00 Temperature Pulse Rate 53 L 52 L Respiratory Rate 15 24 Blood Pressure 155/70 H Pulse Oximetry 97 99 Oxygen Delivery Method 04/29/24 15:31 04/29/24 16:00 Temperature 97.9 F Pulse Rate 56 L 54 L Respiratory Rate 19 19 Blood Pressure 193/76 H Pulse Oximetry 97 99 Oxygen Delivery Method MDM - Chest Pain Lab Data 04/29/24 13:19 04/29/24 13:19 Labs: Lab Results 04/29/24 04/29/24 Range/Units 13:19 15:37 WBC 8.6 (4.5-11.0) X10^3/uL RBC 4.94 (4.0-5.2) X10^6/uL Hgb 14.6 (12.0-16.0) g/dL Hct 44.6 (36-46) % MCV 90.3 (80-100) fL MCH 29.7 (26-34) PG MCHC 32.8 (30-36) % RDW 14.2 (11.6-14.8) % Plt Count 287 (150-400) X10^3/uL Neut % (Auto) 63.5 (50-75) % Lymph % (Auto) 28.7 (25-40) % O'Brien % (Auto) 6.1 (3-14) % Eos % (Auto) 1.0 L (2-4) % Baso % (Auto) 0.7 (0-2) % Neut # (Auto) 5400 (3014-5287) /uL Lymph # (Auto) 2500 (4344-3986) /uL O'Brien # (Auto) 500 (0-900) /uL Eos # (Auto) 100 (0-450) /uL Baso # (Auto) 100 (0-100) /uL PT 10.7 (9.4-12.5) SECONDS INR 0.9 (0.9-1.3) APTT 31 (25.1-36.5) SECONDS Sodium 141 (137-145) mmol/L Potassium 4.2 (3.4-5.1) mmol/L Chloride 105 (98-107) mmol/L Carbon Dioxide 27 (22-32) mmol/L BUN 14 (7-17) mg/dL Creatinine 0.83 (0.52-1.04) mg/dL Estimated GFR > 60 (>60) mL/min BUN/Creatinine Ratio 16.9 (6-22) Glucose 118 H (80-110) mg/dL Calcium 9.5 (8.4-10.2) mg/dL Magnesium 2.2 (1.6-2.3) mg/dL Total Bilirubin 0.7 (0.2-1.3) mg/dL AST 40 H (14-36) IU/L ALT 24 (<35) IU/L Alkaline Phosphatase 90 (38-126) U/L Total Creatine Kinase 106 (30-135) U/L Troponin I < 0.012 < 0.012 (0.01-0.034) ng/mL NT-Pro-B Natriuret Pep 137 (<450) pg/mL Total Protein 8.2 (6.3-8.2) g/dL Albumin 4.8 (3.5-5.0) g/dL Globulin 3.4 (1.7-4.1) g/dL Albumin/Globulin Ratio 1.4 (1.0-2.8) Lipase 176 (23-300) U/L Imaging Data Chest x-ray: Radiologist's Impression: PROCEDURE: XR CHEST 1V INDICATIONS: chest pressure TECHNIQUE: One view of the chest was acquired. COMPARISON: [facility], , XR CHEST 1V, 01/25/2023, 14:37. FINDINGS: Surgical changes and devices: Right humeral fixation hardware. Lungs and pleura: Lungs are clear. No pleural effusions or pneumothorax. Right apical scarring is unchanged. Mediastinum: Mediastinal contours appear normal. Heart size is normal. Bones and chest wall: No suspicious bony lesions. Overlying soft tissues appear unremarkable. IMPRESSION: No acute cardiopulmonary abnormality is seen. Dictated by: Noelle Calloway M.D. on 04/29/2024 at 13:26 ECG Data Attestation: I personally reviewed and interpreted this ECG as follows: Prior ECG tracings: available for review Interpretation: Normal sinus rhythm rate 63 VA interval 162 QRS [address] changes no T-wave inversions similar to prior EKGs MDM Narrative Medical decision making narrative: MDM CC: Chest tightness Complicating co-morbidities: Polymyalgia rheumatica Medical records reviewed: PCP notes reviewed Differential considered: Acute coronary syndrome, atypical chest pain costochondritis, pneumonia, pleurisy Exam documented above, pertinent findings include: Alert well-appearing 88-year-old pain is not reproducible no significant lower extremity edema Lab Test results independently reviewed as above. Pertinent findings: Troponin negative x2 No anemia WBC 8.6 Electrolytes stable kidney function 0.83 Independently reviewed EKG as above no ischemia similar to prior Imaging studies independently reviewed: No acute cardiopulmonary process Consultations: None Treatments: None Re-evaluations: Patient reports pain is better after sitting in the emergency Discussion: 88-year-old female presents today with chest tightness since yesterday. Started while she was walking in the rain and bad weather. She reports that it has been constant. Although it has subsided some while in the ED. She was able to walk this morning without any sort of issue. She is 2- troponins heart score of 2. EKGs does not show any sort of ischemia. Recommend outpatient workup. Discharge Plan Departure Patient Disposition: Home Clinical Impression: Atypical chest pain Instructions: DI for Atypical Chest Pain Activity Restrictions/Additional Instructions: *You have been diagnosed with atypical chest pain *What to do: At this time I do recommend talking with your primary care provider about further cardiac workup. Please return to the ED if you worsening chest pain *Continue to take medications as directed *Follow up with your primary care provider in 2-3 days or call [phone] *Return to ER if you should have increasing chest pain shortness of breath weakness or any new, worsening or concerning symptoms Prescriptions: No Action cholecalciferol (vitamin D3) [Vitamin D3] 2,000 UNIT tablet 1 tab PO QDAY Qty: 0 [BONE UP CA+] Qty: 0 vitamin B complex Capsule 1 cap PO DAILY Referrals: Valentin Little MD [Primary Care Provider] - Stand Alone Forms: Patient Portal/API/Survey
[2024-04-29 16:08] LABS: Troponin I < 0.012 ng/mL (0.01-0.034)
== END 2024-04-29 16:31 | disposition home or self-care (01) ==
PROVIDERS: Emergency Provider Emergency Medicine; PCP Internal Medicine
DX: R07.89 Other chest pain (principal)
CPT/HCPCS: 36415; 71045; 80053; 82550; 83690; 83735; 83880; 84484; 85025; 85610; 85730; 93005; 99284

== ENCOUNTER → 2024-12-17 12:42 | Outpatient (CLI) | payer OTHER, SELFPAY ==
--- NOTE | 2024-12-17 12:43 | DI.MG.S_ITS ---
MM screening mammo BI: 12/17/2024. BI-RADS: 2 CLINICAL: 89-year old female for bilateral screening mammogram. No Tyrer-Cuzick risk score calculation due to patient's age being over 85 years old. Current reported family history of breast cancer: mother, sister and maternal aunt. The patient had prior bilateral breast biopsies. PRIOR EXAMS 12/13/2023, 12/07/2022, 11/27/2021, 10/28/2020, 09/24/2016. MAMMOGRAPHY TECHNIQUE: 2D and 3D (tomosynthesis) digital mammographic views obtained, with additional images as needed for full coverage. Current study was also evaluated with a Computer Aided Detection (CAD) system. DENSITY C. The breasts are heterogeneously dense, which may obscure small masses. MAMMOGRAPHY FINDINGS Right: Biopsy marker present on the right. There are no suspicious masses, calcifications, or other findings in the breast. Left: No suspicious mass, asymmetry, microcalcification, or other abnormality seen. IMPRESSION: Right * No evidence of malignancy with benign findings. Left * No evidence of malignancy. RECOMMENDATIONS Bilateral * Annual screening mammography. OVERALL ASSESSMENT CATEGORY BI-RADS-2: Benign. The [employer] recommends annual screening mammography beginning at age 40 for women with average risk of breast cancer. ELECTRONICALLY SIGNED: Laureen Chávez M.D. on 12/17/2024 at 02:26:27 PM PT Interpreting Station ID: [id number]
== END ==
LOC: MAMMO 12:43
PROVIDERS: PCP Internal Medicine; Referring Provider Internal Medicine; Visit Provider Internal Medicine
DX: Z12.31 Encounter for screening mammogram for malignant neoplasm of breast (principal); Z80.3 Family history of malignant neoplasm of breast; R92.333 Mammographic heterogeneous density, bilateral breasts
CPT/HCPCS: 77063; 77067